=== PATIENT | male | born 1930 | race Caucasian/White ===

== ENCOUNTER 2019-07-17 12:04 | Inpatient (IN) | payer MEDICARE, OTHER ==
[~2019-07-17] VITALS: Ht 177.8 cm; Wt 66.3 kg
[2019-07-17 12:25] LABS: BASO % 0.2 % (0.0-2.0); EOS # 0.4 (0.0-0.7); EOS % 3.8 % (0-4.0); GRAN # 8.2 (1.4-6.5); GRAN % 77.8 % (42.2-75.2); LYMPH % 9.3 % (20.0-51.0); MEAN CELL VOLUME 105 fl (80.0-100.0); MEAN CORPUSCULAR HGB CONC 31 g/dl (33.0-37.0); MEAN PLATELET VOLUME 11.1 fl (7.4-10.4); MONO # 0.9 (0.1-0.6); MONO % 8.1 % (1.7-9.3); PLATELET COUNT 280 K/mm3 (130-400); RED BLOOD COUNT 2.36 M/mm3 (4.20-5.60); REDCELL DISTRIBUTION WIDTH-CV 18.1 % (11.5-14.5)
[2019-07-17 12:29] LABS: HEMATOCRIT 24.8 % (42.0-52.0); HEMOGLOBIN 7.6 g/dl (13.5-18.0); MEAN CORPUSCULAR HEMOGLOBIN 32 pg (27.0-31.0)
[2019-07-17 12:37] LABS: ALBUMIN 3.2 gm/dL (3.5-5.0); BILIRUBIN,TOTAL 0.7 mg/dL (0.0-1.0); C-REACTIVE PROTEIN 5.9 mg/dL (0.0-0.9); CALCIUM 9.2 mg/dL (8.4-10.2); CREATININE, serum 2.01 (0.66-1.25); POTASSIUM 4.5 mmol/L (3.4-5.0); TOTAL PROTEIN 6.6 gm/dL (6.4-8.2)
[2019-07-17 12:42] LABS: INR 1.6 (0.8-3.0); PROTHROMBIN TIME 18.9 SECONDS (9.7-12.8)
[2019-07-17 12:54] LABS: TROPONIN-I 0.099 ng/mL (0.000-0.035)
[2019-07-17 18:15] VITALS: BP 145/71; PULSE 95; TEMP 97.7
[2019-07-17] MEDS ORDERED: RT ADVAIR 228 DISKUS IH (18:39)
[2019-07-17] MEDS ORDERED: ZYLOPRIM 100MG100 MG PO (18:40)
[2019-07-17] MEDS ORDERED: LIPITOR 80MG80 MG PO (18:41)
[2019-07-17] MEDS ORDERED: COREG12.5 MG PO (18:42)
[2019-07-17] MEDS ORDERED: FLEXERIL5 MG PO (18:44)
[2019-07-17] MEDS ORDERED: PROSCAR 5MG5 MG PO (18:45)
[2019-07-17] MEDS ORDERED: FLONASEALLERGY NS (18:46)
[2019-07-17] MEDS ORDERED: FOLIC ACID 40400 MCG PO (18:47)
[2019-07-17] MEDS ORDERED: IMDUR 30MG30 MG/TAB PO (18:48)
[2019-07-17] MEDS ORDERED: FERROUS SU325 MG/TAB PO (18:49)
[2019-07-17] MEDS ORDERED: LASIX 80MG TABL80 MG PO (18:50)
[2019-07-17] MEDS ORDERED: SYNTHROID0.075 MG/T PO (18:51)
[2019-07-17] MEDS ORDERED: LIDODERM 5% PATC1 EA TP (18:55)
[2019-07-17 19:10] VITALS: BP 145/65; PULSE 109; TEMP 97.8
[2019-07-17] MEDS ORDERED: MELATONIN5 M1 PO (19:11)
[2019-07-17] MEDS ORDERED: NITROSTAT0.4 MG/TAB SL (19:12)
[2019-07-17] MEDS ORDERED: MIRALAX PA17 GM/Dose PO (19:12)
[2019-07-17] MEDS ORDERED: PERCOCET 325 MG1 TA2 PO ×2 (19:13→19:14)
[2019-07-17] MEDS ORDERED: PREVACID 30MG30 M1 PO (19:14)
[2019-07-17] MEDS ORDERED: RT SPIRIVA18 MCG IH (19:18)
[2019-07-17] MEDS ORDERED: PROAIR HFA0.09 MG/AC IH (19:18)
[2019-07-17] MEDS ORDERED: FLOMAX 0.40.4 MG/CAP PO (19:19)
[2019-07-17] MEDS ORDERED: XARELTO15 MG PO (19:20)
[2019-07-17] MEDS ORDERED: TYLENOL 325MG325 MG PO (19:20)
[2019-07-17] MEDS ORDERED: XYZAL5 MG PO (19:21)
[2019-07-18] VITALS (8 sets, daily range): BP systolic 119–160; BP diastolic 59–89; PULSE 95–105; TEMP 97.3–99.4
[2019-07-18 06:15] LABS: BASO % 0.1 % (0.0-2.0); EOS # 0.3 (0.0-0.7); GRAN # 7.7 (1.4-6.5); GRAN % 79.3 % (42.2-75.2); LYMPH # 0.9 (1.2-3.4); LYMPH % 9.2 % (20.0-51.0); MEAN CELL VOLUME 103 fl (80.0-100.0); MEAN CORPUSCULAR HGB CONC 31 g/dl (33.0-37.0); MEAN PLATELET VOLUME 11.3 fl (7.4-10.4); MONO # 0.7 (0.1-0.6); MONO % 7.3 % (1.7-9.3); PLATELET COUNT 260 K/mm3 (130-400); RED BLOOD COUNT 2.28 M/mm3 (4.20-5.60); REDCELL DISTRIBUTION WIDTH-CV 18.1 % (11.5-14.5)
[2019-07-18 06:16] LABS: HEMATOCRIT 23.5 % (42.0-52.0); HEMOGLOBIN 7.2 g/dl (13.5-18.0); MEAN CORPUSCULAR HEMOGLOBIN 32 pg (27.0-31.0)
[2019-07-18 06:25] LABS: CREATININE, serum 1.85 (0.66-1.25); POTASSIUM 4.2 mmol/L (3.4-5.0)
[2019-07-18 06:31] LABS: IRON,SERUM 19 ug/dL (35-150)
[2019-07-18 06:40] LABS: TOTAL IRON BINDING CAPACITY 234 ug/dL (261-462)
[2019-07-18 07:06] LABS: FERRITIN 236 ng/mL (18-464)
[2019-07-18 16:23] LABS: FOLATE (FOLIC ACID) 17.5 ng/mL (7.0-31.4)
[2019-07-18 20:09] LABS: COLLECTION METHOD CLEAN CATCH
[2019-07-18 20:21] LABS: PH 6 (5-8); SQUAMOUS EPITHELIAL None Seen /hpf; URINE APPEARANCE Clear; URINE BACTERIA None Seen /hpf; URINE BILIRUBIN Negative (NEGATIVE); URINE BLOOD Negative (NEGATIVE); URINE COLOR Yellow; URINE GLUCOSE Negative (NEGATIVE); URINE KETONE Negative (NEGATIVE); URINE LEUKOCYTE ESTERASE Negative (NEGATIVE); URINE NITRATE Negative (NEGATIVE); URINE PROTEIN(semi-quant) Negative (NEGATIVE); URINE RBC 0-2 /hpf
[2019-07-19] VITALS (10 sets, daily range): BP systolic 116–153; BP diastolic 57–76; PULSE 79–101; TEMP 97.3–98.4
[2019-07-19 08:38] LABS: BASO % 0.4 % (0.0-2.0); EOS # 0.3 (0.0-0.7); EOS % 3.9 % (0-4.0); GRAN # 5.6 (1.4-6.5); GRAN % 75.5 % (42.2-75.2); LYMPH # 0.9 (1.2-3.4); LYMPH % 12.6 % (20.0-51.0); MEAN CELL VOLUME 104 fl (80.0-100.0); MEAN CORPUSCULAR HGB CONC 31 g/dl (33.0-37.0); MEAN PLATELET VOLUME 11.3 fl (7.4-10.4); MONO # 0.5 (0.1-0.6); MONO % 6.7 % (1.7-9.3); PLATELET COUNT 254 K/mm3 (130-400); RED BLOOD COUNT 2.13 M/mm3 (4.20-5.60); REDCELL DISTRIBUTION WIDTH-CV 18.2 % (11.5-14.5)
[2019-07-19 08:41] LABS: HEMATOCRIT 22.1 % (42.0-52.0); HEMOGLOBIN 6.8 g/dl (13.5-18.0); MEAN CORPUSCULAR HEMOGLOBIN 32 pg (27.0-31.0)
[2019-07-19 08:48] LABS: CALCIUM 9.3 mg/dL (8.4-10.2); CREATININE, serum 1.62 (0.66-1.25); POTASSIUM 4.1 mmol/L (3.4-5.0)
[2019-07-19 23:40] LABS: HEMOGLOBIN 7.8 g/dl (13.5-18.0)
[2019-07-20] VITALS (58 sets, daily range): BP systolic 117–137; BP diastolic 57–89; PULSE 90–109; TEMP 92–99.1; O2SAT 94–100
[2019-07-20 05:58] LABS: BASO % 0.2 % (0.0-2.0); EOS # 0.2 (0.0-0.7); EOS % 1.6 % (0-4.0); GRAN # 7.7 (1.4-6.5); GRAN % 80.4 % (42.2-75.2); LYMPH % 10.3 % (20.0-51.0); MEAN CELL VOLUME 100 fl (80.0-100.0); MEAN CORPUSCULAR HGB CONC 31 g/dl (33.0-37.0); MEAN PLATELET VOLUME 11.2 fl (7.4-10.4); MONO # 0.6 (0.1-0.6); MONO % 6.5 % (1.7-9.3); PLATELET COUNT 246 K/mm3 (130-400); RED BLOOD COUNT 2.44 M/mm3 (4.20-5.60)
[2019-07-20 06:11] LABS: HEMATOCRIT 24.5 % (42.0-52.0); HEMOGLOBIN 7.6 g/dl (13.5-18.0); MEAN CORPUSCULAR HEMOGLOBIN 31 pg (27.0-31.0)
[2019-07-20 06:12] LABS: CALCIUM 9.5 mg/dL (8.4-10.2); CREATININE, serum 1.6 (0.66-1.25); POTASSIUM 4.4 mmol/L (3.4-5.0)
[2019-07-20 17:10] LABS: ARTERIAL BLD GAS O2 SATURATION 83.2 % (92-100); ARTERIAL BLD GAS TCO2 CT 21.7; ARTERIAL BLOOD GAS BASE EXCESS -1.3 (-2-2); ARTERIAL BLOOD GAS HCO3 20.9 meq/L (22-26); ARTERIAL BLOOD GAS PCO2 27.3 mmHg (35-45)
[2019-07-20 17:11] LABS: ARTERIAL BLOOD GAS PO2 44.1 mmHg (80-100)
[2019-07-20 18:50] LABS: ARTERIAL BLOOD GAS PCO2 23.2 mmHg (35-45); ARTERIAL BLOOD GAS pH 7.49 (7.35-7.45)
[2019-07-20 18:51] LABS: ARTERIAL BLD GAS TCO2 CT 18.1; ARTERIAL BLOOD GAS BASE EXCESS -4.8 (-2-2); ARTERIAL BLOOD GAS HCO3 17.4 meq/L (22-26); ARTERIAL BLOOD GAS PO2 60.2 mmHg (80-100)
[2019-07-20 21:24] LABS: ARTERIAL BLD GAS O2 SATURATION 96.2 % (92-100); ARTERIAL BLOOD GAS BASE EXCESS -0.5 (-2-2); ARTERIAL BLOOD GAS HCO3 22.1 meq/L (22-26); ARTERIAL BLOOD GAS PCO2 29.3 mmHg (35-45); ARTERIAL BLOOD GAS PO2 83.2 mmHg (80-100)
[2019-07-21] VITALS (729 sets, daily range): BP systolic 97–126; BP diastolic 57–80; PULSE 76–96; TEMP 98–98.9; O2SAT 89–100
[2019-07-21 00:35] LABS: CALCIUM 9.5 mg/dL (8.4-10.2); CREATININE, serum 1.61 (0.66-1.25); PHOSPHOROUS 3.2 mg/dL (2.5-4.5); POTASSIUM 4.2 mmol/L (3.4-5.0)
[2019-07-21 05:14] LABS: BASO % 0.2 % (0.0-2.0); EOS # 0.1 (0.0-0.7); EOS % 1.3 % (0-4.0); GRAN # 7.8 (1.4-6.5); GRAN % 81.2 % (42.2-75.2); LYMPH # 0.8 (1.2-3.4); LYMPH % 8.7 % (20.0-51.0); MEAN CELL VOLUME 99 fl (80.0-100.0); MEAN CORPUSCULAR HGB CONC 32 g/dl (33.0-37.0); MEAN PLATELET VOLUME 11.3 fl (7.4-10.4); MONO # 0.7 (0.1-0.6); MONO % 7.6 % (1.7-9.3); PLATELET COUNT 234 K/mm3 (130-400)
[2019-07-21 05:17] LABS: HEMATOCRIT 26.7 % (42.0-52.0); HEMOGLOBIN 8.5 g/dl (13.5-18.0); MEAN CORPUSCULAR HEMOGLOBIN 31 pg (27.0-31.0)
[2019-07-21 05:28] LABS: CALCIUM 9.5 mg/dL (8.4-10.2); CREATININE, serum 1.69 (0.66-1.25)
[2019-07-21 05:39] LABS: ARTERIAL BLD GAS O2 SATURATION 94.1 % (92-100); ARTERIAL BLD GAS TCO2 CT 21.3; ARTERIAL BLOOD GAS HCO3 20.5 meq/L (22-26); ARTERIAL BLOOD GAS PCO2 27.2 mmHg (35-45); ARTERIAL BLOOD GAS PO2 68.8 mmHg (80-100); ARTERIAL BLOOD GAS pH 7.49 (7.35-7.45)
[2019-07-21 15:40] LABS: ARTERIAL BLD GAS O2 SATURATION 97.9 % (92-100); ARTERIAL BLD GAS TCO2 CT 23.4; ARTERIAL BLOOD GAS BASE EXCESS -0.9 (-2-2); ARTERIAL BLOOD GAS HCO3 22.4 meq/L (22-26); ARTERIAL BLOOD GAS PCO2 32.1 mmHg (35-45); ARTERIAL BLOOD GAS PO2 105.2 mmHg (80-100); ARTERIAL BLOOD GAS pH 7.46 (7.35-7.45)
[2019-07-22] VITALS (761 sets, daily range): BP systolic 103–122; BP diastolic 58–76; PULSE 77–88; TEMP 97.7–99.1; O2SAT 66–100
[2019-07-22 05:09] LABS: BASO % 0.4 % (0.0-2.0); EOS # 0.5 (0.0-0.7); EOS % 4.6 % (0-4.0); GRAN # 7.8 (1.4-6.5); GRAN % 78.9 % (42.2-75.2); LYMPH # 0.8 (1.2-3.4); LYMPH % 7.8 % (20.0-51.0); MEAN CELL VOLUME 95 fl (80.0-100.0); MEAN CORPUSCULAR HGB CONC 33 g/dl (33.0-37.0); MEAN PLATELET VOLUME 10.9 fl (7.4-10.4); MONO # 0.8 (0.1-0.6); MONO % 7.7 % (1.7-9.3); PLATELET COUNT 216 K/mm3 (130-400); REDCELL DISTRIBUTION WIDTH-CV 19.7 % (11.5-14.5)
[2019-07-22 05:10] LABS: HEMATOCRIT 28.6 % (42.0-52.0); HEMOGLOBIN 9.4 g/dl (13.5-18.0); MEAN CORPUSCULAR HEMOGLOBIN 31 pg (27.0-31.0)
[2019-07-22 05:20] LABS: CALCIUM 9.2 mg/dL (8.4-10.2); CREATININE, serum 1.8 (0.66-1.25); MAGNESIUM 2.1 mg/dL (1.6-2.3); POTASSIUM 3.5 mmol/L (3.4-5.0)
[2019-07-22 05:21] LABS: ARTERIAL BLD GAS O2 SATURATION 89.8 % (92-100); ARTERIAL BLD GAS TCO2 CT 22.5; ARTERIAL BLOOD GAS BASE EXCESS -1.3 (-2-2); ARTERIAL BLOOD GAS HCO3 21.6 meq/L (22-26); ARTERIAL BLOOD GAS PCO2 29.9 mmHg (35-45); ARTERIAL BLOOD GAS PO2 57.1 mmHg (80-100); ARTERIAL BLOOD GAS pH 7.48 (7.35-7.45)
[2019-07-22 09:57] LABS: GLUCOSE,PLEURAL FLUID 86 mg/dL
[2019-07-22 09:59] LABS: TOTAL PROTEIN,PLEURAL FLUID < 2.0 gm/dL
[2019-07-22 10:03] LABS: PLEURAL FLUID RBC 2000 /mm3 (0-0); PLEURAL FLUID WBC 916 /mm3
[2019-07-22 10:09] LABS: PLEURAL FLUID APPEARANCE CLOUDY; PLEURAL FLUID COLOR YELLOW
[2019-07-23] VITALS (569 sets, daily range): BP systolic 100–129; BP diastolic 52–99; PULSE 67–86; TEMP 97.9–99.5; O2SAT 81–100
[2019-07-23 05:57] LABS: BASO % 0.3 % (0.0-2.0); EOS # 0.6 (0.0-0.7); EOS % 6.3 % (0-4.0); GRAN # 6.7 (1.4-6.5); GRAN % 73.3 % (42.2-75.2); LYMPH % 11.1 % (20.0-51.0); MEAN CELL VOLUME 98 fl (80.0-100.0); MEAN CORPUSCULAR HGB CONC 31 g/dl (33.0-37.0); MEAN PLATELET VOLUME 11.1 fl (7.4-10.4); MONO # 0.8 (0.1-0.6); MONO % 8.3 % (1.7-9.3); PLATELET COUNT 210 K/mm3 (130-400); RED BLOOD COUNT 2.87 M/mm3 (4.20-5.60)
[2019-07-23 06:01] LABS: HEMATOCRIT 28.1 % (42.0-52.0); HEMOGLOBIN 8.8 g/dl (13.5-18.0); MEAN CORPUSCULAR HEMOGLOBIN 31 pg (27.0-31.0)
[2019-07-23 06:10] LABS: CALCIUM 8.9 mg/dL (8.4-10.2); CREATININE, serum 1.82 (0.66-1.25); POTASSIUM 3.5 mmol/L (3.4-5.0)
[2019-07-23 09:24] LABS: PLEURAL FLUID RBC 0 /mm3 (0-0); PLEURAL FLUID WBC 880 /mm3
[2019-07-23 09:28] LABS: PLEURAL FLUID APPEARANCE CLEAR; PLEURAL FLUID COLOR YELLOW
[2019-07-23 09:35] LABS: GLUCOSE,PLEURAL FLUID 86 mg/dL
[2019-07-23 09:40] LABS: TOTAL PROTEIN,PLEURAL FLUID < 2.0 gm/dL
[2019-07-24 00:47] VITALS: BP 106/70; PULSE 89; TEMP 98.9
[2019-07-24 05:27] VITALS: BP 108/67; PULSE 79; TEMP 98
[2019-07-24 05:32] LABS: BASO % 0.3 % (0.0-2.0); EOS # 0.6 (0.0-0.7); EOS % 6.2 % (0-4.0); GRAN # 6.9 (1.4-6.5); GRAN % 72.5 % (42.2-75.2); LYMPH # 1.1 (1.2-3.4); LYMPH % 11.4 % (20.0-51.0); MEAN CELL VOLUME 98 fl (80.0-100.0); MEAN CORPUSCULAR HGB CONC 32 g/dl (33.0-37.0); MEAN PLATELET VOLUME 11.1 fl (7.4-10.4); MONO # 0.9 (0.1-0.6); MONO % 8.9 % (1.7-9.3); PLATELET COUNT 219 K/mm3 (130-400); RED BLOOD COUNT 2.96 M/mm3 (4.20-5.60); REDCELL DISTRIBUTION WIDTH-CV 18.7 % (11.5-14.5)
[2019-07-24 05:35] LABS: HEMATOCRIT 29.1 % (42.0-52.0); HEMOGLOBIN 9.2 g/dl (13.5-18.0); MEAN CORPUSCULAR HEMOGLOBIN 31 pg (27.0-31.0)
[2019-07-24 05:46] LABS: CALCIUM 9.1 mg/dL (8.4-10.2); CREATININE, serum 1.85 (0.66-1.25); MAGNESIUM 2.2 mg/dL (1.6-2.3); POTASSIUM 4.4 mmol/L (3.4-5.0)
[2019-07-24 07:40] VITALS: BP 119/59; PULSE 92; TEMP 97.6
[2019-07-24 10:51] VITALS: BP 130/60; PULSE 82; TEMP 98.2
[2019-07-24] MEDS ORDERED: PERCOCET 325 MG1 TA2 PO ×2 (11:42)
[2019-07-24] MEDS ORDERED: OMNICEF 300MG300 MG PO (11:42)
[2019-07-24 14:50] VITALS: BP 130/60; PULSE 82; TEMP 98.2
== END 2019-07-24 15:43 | DRG 193 ==
LOC: COL.ER 12:04 → MEDICAL 14:52 → ICU 14:52 → MEDICAL 14:53 → ICU 07-20 19:24 → MEDICAL 07-24 01:50
PROVIDERS: Emergency Medicine; Family Medicine; Hospitalist; Internal Medicine Critical Care Medicine; Internal Medicine Pulmonary Disease; Nurse Practitioner Family; Physician Assistant; ADMIT Internal Medicine
PROC: 0W9900Z Drainage of Right Pleural Cavity with Drainage Device, Open Approach (ICD-10-PCS; principal; 2019-07-22)
PROC: 02HV33Z Insertion of Infusion Device into Superior Vena Cava, Percutaneous Approach (ICD-10-PCS; 2019-07-22)
PROC: 0W9B00Z Drainage of Left Pleural Cavity with Drainage Device, Open Approach (ICD-10-PCS; 2019-07-23)
DX: J18.1 Lobar pneumonia, unspecified organism (principal); E43 Unspecified severe protein-calorie malnutrition; J96.01 Acute respiratory failure with hypoxia; I50.23 Acute on chronic systolic (congestive) heart failure; I21.A1 Myocardial infarction type 2; R04.2 Hemoptysis; N17.9 Acute kidney failure, unspecified; I42.9 Cardiomyopathy, unspecified; I13.0 Hypertensive heart and chronic kidney disease with heart failure and stage 1 through stage 4 chronic kidney disease, or unspecified chronic kidney disease; I48.20 Chronic atrial fibrillation, unspecified; J90 Pleural effusion, not elsewhere classified; Z66 Do not resuscitate; D63.1 Anemia in chronic kidney disease; N18.3 Chronic kidney disease, stage 3 (moderate); E78.5 Hyperlipidemia, unspecified; I08.1 Rheumatic disorders of both mitral and tricuspid valves; I27.20 Pulmonary hypertension, unspecified; D53.9 Nutritional anemia, unspecified; T14.8XXD Other injury of unspecified body region, subsequent encounter; W19.XXXD Unspecified fall, subsequent encounter; N40.0 Benign prostatic hyperplasia without lower urinary tract symptoms; R53.81 Other malaise; Z96.643 Presence of artificial hip joint, bilateral; Z95.5 Presence of coronary angioplasty implant and graft; Z95.810 Presence of automatic (implantable) cardiac defibrillator; Z88.1 Allergy status to other antibiotic agents; Z88.8 Allergy status to other drugs, medicaments and biological substances
CPT/HCPCS: OP; 99223-AI; 99231-AI; 99232-AI; 99233-AI; 99239; A4216; A9284; C1751; J0696; J1940; J2543; J3370; J3480; J7030; J7050; P9016